=== PATIENT | male | born 1955 | race Caucasian/White ===

== ENCOUNTER 2025-07-28 06:49 | Day surgery (SDC) | payer MEDICARE, BC ==
[2025-07-28] MEDS ORDERED: Sodium Chloride 0.9% 10 ML Syringe IV ONE (06:50)
[2025-07-28] MEDS ORDERED: Dexamethasone 4 MG/ML SDV IV ONE (06:50)
[2025-07-28] MEDS ORDERED: Midazolam 1 MG/ML 2 ML SDV IV ONE (06:50)
[2025-07-28] MEDS ORDERED: Moxifloxacin 0.5% Ophth Soln 3 ML Bottle EYELF ONE ×2 (07:00→07:41)
[2025-07-28] MEDS ORDERED: Cataract Ophth Solution EYELF ONE (07:00)
[2025-07-28] MEDS ORDERED: Ondansetron 4 MG/2 ML SDV IVPUSH PRN (07:00)
[2025-07-28] MEDS ORDERED: Timolol Maleate 0.5% Ophth Soln 5 ML Bottle EYELF ONE (07:00)
[2025-07-28] MEDS: Povidone-Iodine 5% Sterile Ophth Soln 30 ML Bottle EYELF ONE ×2 (07:29→08:08)
[2025-07-28] MEDS: Phenylephrine 10% Ophth Soln 5 ML Bot EYELF ONE (07:40)
[2025-07-28] MEDS: Diclofenac Sodium 0.1% Ophth Soln 5 ML Bottle EYELF ONE (08:16)
[2025-07-28] MEDS: Apraclonidine 0.5% Ophth Soln 5 ML Bot EYELF ONE (08:16)
[2025-07-28] MEDS: Dexamethasone/Neomycin/Polymyxin B Ophth Oint 3.5 GM Tube EYELF ONE (08:17)
== END 2025-07-28 08:59 | disposition home or self-care (01) ==
LOC: DL.SDS 06:49
PROVIDERS: ATTEND Ophthalmology
DX: H25.813 Combined forms of age-related cataract, bilateral (principal); I10 Essential (primary) hypertension; E66.01 Morbid (severe) obesity due to excess calories; Z68.43 Body mass index [BMI] 50.0-59.9, adult; Z87.891 Personal history of nicotine dependence; Z79.899 Other long term (current) drug therapy
CPT/HCPCS: 66982; A9270; J1100; J2003; J2250; J3373; V2632; 00142; J3490